=== PATIENT | female | born 1995 | race Caucasian/White ===

== ENCOUNTER 2021-03-05 15:33 | Emergency (ER) | payer MEDICAID, SELFPAY ==
[2021-03-05 15:34] VITALS: BP 121/72; PULSE 77; RESP 16; TEMP 36.8; O2SAT 100; BMI 23.6
[2021-03-05 15:56] LABS: Microscopic, Urine URINE MICROSCOPIC (MICROSCOPIC)
[2021-03-05 16:00] LABS: Appearance,Urine CLEAR (Clear); Basophils # 0.1 K/mm3 (0-0.2); Basophils % 1.4 % (0.1-2.0); Bilirubin,Urine Negative (Negative); Blood, Urine Negative (Negative); Color,Urine STRAW (Yellow); Eosinophils # 0.1 K/mm3 (0.0-0.4); Eosinophils % 1.2 % (0.1-12.0); Glucose,Urine (UA) Negative (Negative); Hematocrit 50.5 % (37.0-47.0); Hemoglobin 16.9 g/dL (12.2-16.2); Ketones,Urine Negative (Negative); Leukocyte Esterase,Urine 2+ (Negative); Lymphocytes # 1.8 K/mm3 (0.7-4.5); Lymphocytes % 25.3 % (10-50); Mean Corpuscular HGB Conc 33.4 g/dL (31.8-35.4); Mean Corpuscular Hemoglobin 32.3 pg (27.0-31.2); Mean Corpuscular Volume 96.7 fl (81-99); Mean Platelet Volume 9.6 fl (7.4-10.4); Monocytes # 0.3 K/mm3 (0.1-1.0); Neutrophils # 4.8 K/mm3 (1.8-7.8); Neutrophils % 68.1 % (37.0-80.0); Nitrate,Urine Negative (Negative); Platelet Count 235 K/mm3 (142-424); Protein,Urine Negative (Negative); Red Blood Count 5.22 M/mm3 (4.20-5.40); Red Cell Distribution Width 12.9 % (11.5-17.5); Urobilinogen,Urine 0.2 EU/dl (0.2); White Blood Count 7.1 K/mm3 (4.8-10.8)
[2021-03-05 16:02] LABS: Urine Pregnancy, HCG Qual. Negative (Negative)
[2021-03-05 16:06] LABS: Bacteria,Urine 1+ /lpf; Chloride 99 mmol/L (98-107); Sodium 142 mmol/L (136-145)
[2021-03-05 16:07] LABS: Potassium 3.5 mmoL/L (3.5-5.1)
[2021-03-05 16:09] LABS: Alanine Aminotransferase 18 U/L (12-78); Albumin Level 5.4 g/dl (3.5-5.0); Albumin/Globulin Ratio 1.3 (1.1-1.8); Alkaline Phosphatase 87 U/L (38-126); Anion Gap 16.5 mEq/L (5-15); Aspartate Amino Transferase 37 U/L (14-36); Bilirubin,Total 0.6 mg/dl (0.2-1.3); Blood Urea Nitrogen 7 mg/dl (7-17); Carbon Dioxide 30 mmol/L (22.0-30.0); Creatinine Clearance Estimated 94 mL/min (50-200); Estimated Glomerular Filt Rate 85 ml/min (>60); GFR (African American) 103 ML/MIN (>60); Globulin 4.2 g/dL (1.3-3.2); Glucose 139 mg/dl (74-100); Lipase 79 U/L (23-300); Total Protein,Serum 9.6 g/dl (6.3-8.2)
--- NOTE | 2021-03-05 16:18 | [facility].EDGENADL ---
ED Disposition Clinical Impression: Dehydration Gastritis Qualifiers: Gastritis type: unspecified gastritis Chronicity: acute Gastritis bleeding: without bleeding Qualified Code(s): K29.00 - Acute gastritis without bleeding Disposition: Home, Self-Care Condition on Discharge: Good Instructions: DI for Acute Abdominal Pain Additional Instructions: Trial of Carafate for your upset stomach. Follow-up with PCP in a few days. Turn to emergency department for abdominal swelling or firmness, blood in your bowels, persistent vomiting. Prescriptions: Sucralfate [Carafate 1gm Tab] 1 gm PO QID #28 tab Transmission Status: Pending to [facility] #[id number] Referrals: Monty Gary [Primary Care Provider] - Time of Disposition: 17:25 - Critical Care Critical Care Time: No Attestation: On 03/05/21, the high probability of a clinically significant, sudden or life threatening deterioration of the following system(s) required my full and direct attention, intervention and personal management. The time I documented below is in addition to time spent performing reported procedures but includes the following listed in this critical care notation. Medical Decision Making - Medical Records Medical records reviewed: Yes: I reviewed the patient's medical records. - Fabian Inquiry Pt receiving controlled substance: No Vital Signs: 03/05/21 15:34 Temperature 98.3 F Temperature Source Oral Pulse Rate [Right] 77 Respiratory Rate 16 Blood Pressure [Right Arm] 121/72 Blood Pressure Mean [Right Arm] 88 Blood Pressure Source [Right Arm] Automatic Cuff Blood Pressure Position [Right Arm] Sitting 02 Sat by Pulse Oximetry 100 Oxygen Delivery Method Room Air - Lab Data Lab results reviewed: Yes: I reviewed the patient's lab results. Lab Results 03/05/21 15:50: Urine Color Straw, Urine Appearance Clear, Urine pH 6.0, Ur Specific [place] 1.020, Urine Protein Negative, Urine Glucose (UA) Negative, Urine Ketones Negative, Urine Blood Negative, Urine Nitrate Negative, Urine Bilirubin Negative, Urine Urobilinogen 0.2, Ur Leukocyte Esterase 2+ A, Urine WBC 5-10, Ur Squamous Epith Cells 10-20, Urine Bacteria 1+ 03/05/21 15:50: WBC 7.1, RBC 5.22, Hgb 16.9 H, Hct 50.5 H, MCV 96.7, MCH 32.3 H, MCHC 33.4, RDW 12.9, Plt Count 235, MPV 9.6, Neut % (Auto) 68.1, Lymph % (Auto) 25.3, [place] % (Auto) 4.0, Eos % (Auto) 1.2, Baso % (Auto) 1.4, Neut # (Auto) 4.8, Lymph # (Auto) 1.8, [place] # (Auto) 0.3, Eos # (Auto) 0.1, Baso # (Auto) 0.1 03/05/21 15:50: Urine HCG, Qual Negative 03/05/21 15:50: Sodium 142, Potassium 3.5, Chloride 99, Carbon Dioxide 30, Anion Gap 16.5 H, BUN 7, Creatinine 0.80, Estimated Creat Clear 94, Estimated GFR 85, Est GFR ( Amer) 103, Glucose 139 H, Calcium 10.0, Total Bilirubin 0.6, AST 37 H, ALT 18, Alkaline Phosphatase 87, Total Protein 9.6 H, Albumin 5.4 H, Globulin 4.2 H, Albumin/Globulin Ratio 1.3, Lipase 79 Result diagrams: 03/05/21 15:50 03/05/21 15:50 Orders (Tests/Meds): ED MEDICATIONS Discontinued Medications Generic Name Dose Route Start Last Admin Trade Name Freq PRN Reason Stop Dose Admin Sodium Chloride 1,000 mls @ 999 mls/hr 03/05/21 16:15 03/05/21 16:24 Sod Chlor 0.9% 1000ml Bag IV 03/05/21 17:15 999 mls/hr .Q1H1M ISIAH Administration ORDERS Category Date Time Status Hemoglobin A1C Stat Lab 03/05/21 15:50 Received Urine Culture Stat Micro 03/05/21 15:50 Received Medical Decision Narrative: 26yo F evaluated for epigastric pain. Patient no acute distress on initial evaluation. Laboratory studies are largely unremarkable but the patient does appear somewhat dehydrated based off of her H/H. Physical exam is remarkable only for epigastric tenderness. We will rehydrate the patient at this time. Anticipate discharge home. Laboratory studies are unremarkable. General Adult HPI - General Chief complaint: Abdominal Pain Stated complaint: stomach issues pain nausa Steve
--- NOTE | 2021-03-05 16:59 | PC.NURSE ---
LAB NOTIFIED OF ADDITIONAL LAB TEST
[2021-03-05 17:28] LABS: Hemoglobin A1C 5.2 % (4.0-6.0)
[2021-03-05 18:05] VITALS: BP 112/70; PULSE 70; RESP 16; TEMP 36.8; O2SAT 98
== END 2021-03-05 18:08 | disposition home or self-care (01) ==
PROVIDERS: Emergency Provider Family Medicine; PCP Internal Medicine
DX: K29.00 Acute gastritis without bleeding (principal); E86.0 Dehydration; B95.1 Streptococcus, group B, as the cause of diseases classified elsewhere
CPT/HCPCS: 80053; 81001; 81025; 83036; 83690; 85025; 87086; 87186; 96365; 99282